=== PATIENT | male | born 1990 | race Caucasian/White ===

== ENCOUNTER 2017-05-04 17:30 | Emergency (ER) | payer OTHER ==
[2017-05-04 18:23] VITALS: BP 137/89
--- NOTE | 2017-05-04 19:19 | RADIOLOGY REPORT (SQ) ---
EXAM DESCRIPTION: SHOULDER RIGHT 2 OR MORE VIEWS COMPLETED DATE/TIME: 05/04/2017 7:11 pm REASON FOR STUDY: unable to raise right shoulder COMPARISON: None. NUMBER OF VIEWS: Three views. TECHNIQUE: Internal rotation, external rotation, and Y view images acquired of the right shoulder. LIMITATIONS: None. FINDINGS: MINERALIZATION: Normal. BONES: No acute fracture or dislocation. No worrisome bone lesions. JOINTS: No dislocation. VISUALIZED LUNGS AND RIBS: No pneumothorax. No rib fracture. SOFT TISSUES: No radiopaque foreign body. OTHER: No other significant finding. IMPRESSION: NEGATIVE STUDY OF THE RIGHT SHOULDER. NO RADIOGRAPHIC EVIDENCE OF ACUTE INJURY. TECHNICAL DOCUMENTATION: JOB ID: [id number] [employer]- All Rights Reserved
[2017-05-04] MEDS ORDERED: NAPROXEN 250 MG TABLET PO ONE (21:35)
[2017-05-04] MEDS ORDERED: METHOCARBAMOL 500 MG TABLET PO ONE (21:35)
--- NOTE | 2017-05-04 21:37 | ER Document Report ---
ED Extremity Problem, Upper - General Chief Complaint: Shoulder Pain Stated Complaint: SHOULDER PAIN Time Seen by Provider: 05/04/17 21:33 Notes: The patient is a 27-year-old male who presents with 3 weeks of right shoulder pain is worse when he picks up heavy objects. 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 He is having worsening right shoulder pain and upper back pain when he tries to lift up his son. He denies fall, numbness, tingling, rash, chest pain, shortness of breath, nausea or vomiting. TRAVEL OUTSIDE OF THE [place] IN LAST 30 DAYS: No - Related Data Allergies/Adverse Reactions: Penicillins Allergy (Verified 03/15/12 09:45) unknown Past Medical History - General Information source: Patient - Social History Smoking Status: Unknown if Ever Smoked Family History: Reviewed & Not Pertinent Patient has suicidal ideation: No Patient has homicidal ideation: No Neurological Medical History: Reports: Hx Seizures Renal/ Medical History: Denies: Hx Peritoneal Dialysis Past Surgical History: Reports: Hx Appendectomy Review of Systems - Review of Systems Notes: REVIEW OF SYSTEMS: CONSTITUTIONAL: -fevers, -chills EENT: -eye pain, -difficulty swallowing, -nasal congestion CARDIOVASCULAR:-chest pain, -syncope. RESPIRATORY: -cough, -SOB GASTROINTESTINAL: -abdominal pain, - nausea, -vomiting, -diarrhea GENITOURINARY: -dysuria, -hematuria MUSCULOSKELETAL: +right shoulder pain, +upper back pain, -neck pain SKIN: -rash or skin lesions. HEMATOLOGIC: -easy bruising or bleeding. LYMPHATIC: -swollen, enlarged glands. NEUROLOGICAL: -altered mental status or loss of consciousness, -headache, - neurologic symptoms PSYCHIATRIC: -anxiety, -depression. ALL OTHER SYSTEMS REVIEWED AND NEGATIVE. Physical Exam - Vital signs Vitals: Temp Pulse Resp BP Pulse Ox 98.1 F 90 18 137/89 H 98 05/04/17 18:18 05/04/17 18:18 05/04/17 18:18 05/04/17 18:18 05/04/17 18:18 - Notes Notes: PHYSICAL EXAMINATION: GENERAL: Well-appearing, well-nourished and in no acute distress. HEAD: Atraumatic, normocephalic. EYES: Pupils equal round and reactive to light, extraocular movements intact, sclera anicteric, conjunctiva are normal. ENT: nares patent, oropharynx clear without exudates. Moist mucous membranes. NECK: Normal range of motion, supple without lymphadenopathy LUNGS: Breath sounds clear to auscultation bilaterally and equal. No wheezes rales or rhonchi. HEART: Regular rate and rhythm without murmurs ABDOMEN: Soft, nontender, normoactive bowel sounds. No guarding, no rebound. No masses appreciated. EXTREMITIES: Normal range of motion, no pitting or edema. No cyanosis. Painful right shoulder extension. Strong distal pulses. Tenderness over right upper trap. NEUROLOGICAL: Cranial nerves grossly intact. Normal speech, normal gait. Normal sensory and motor exams. PSYCH: Normal mood, normal affect. SKIN: Warm, Dry, normal turgor, no rashes or lesions noted. Course - Re-evaluation Re-evalutation: Patient has evidence of right upper back pain and spasming with right shoulder strain. X-ray negative. Instructed him about beginning NSAIDs, Lidocaine patches and Robaxin for any muscle spasms with f/u at Ortho. - Vital Signs Vital signs: Temp Pulse Resp BP Pulse Ox 98.1 F 90 18 137/89 H 98 05/04/17 18:18 05/04/17 18:18 05/04/17 18:18 05/04/17 18:18 05/04/17 18:18 - Diagnostic Test Radiology reviewed: Image reviewed, Reports reviewed Radiology results interpreted by me: Right shoulder x-ray: NAD Discharge - Discharge Clinical Impression: Right shoulder pain Qualifiers: Chronicity: acute Qualified Code(s): M25.511 - Pain in right shoulder Condition: Stable Disposition: HOME, SELF-CARE Additional Instructions: Follow-up with the orthopedic surgeon at the [facility] this week. Take Naprosyn and Robaxin to help with your shoulder pain. Shoulder Injury You have injured your shoulder. This usually results from stretching or tearing of the tendons during trauma. Time and protection are required in order to heal properly. Many injuries are quite disabling, and should be taken seriously. Initial treatment includes cold packs and a sling to rest the shoulder. The physician has assessed the seriousness of your injury, and has outlined a treatment plan. Understand that this treatment may change, depending on how you progress. If a re-examination was recommended, it is important that you follow up as instructed. Some shoulder injuries (such as partial tear of the rotator cuff) are only suspected after you've failed to improve. Call us if there's severe pain, numbness, or loss of function. Prescriptions: Methocarbamol [Robaxin 500 mg Tablet] 500 mg PO Q4H PRN #15 tablet PRN Reason: Forms: Return to Work Referrals: CRISTY ELIZABETH DO [ACTIVE STAFF] - Follow up as needed
== END 2017-05-04 21:55 | disposition home or self-care (01) ==
LOC: ER 17:30
DX: M25.511 Pain in right shoulder (principal); M54.6 Pain in thoracic spine
CPT/HCPCS: 99283

== ENCOUNTER 2017-09-17 20:46 | Emergency (ER) | payer OTHER, MEDICAID ==
[2017-09-17] MEDS ORDERED: OXYCODONE-ACETAMINOPHEN 5-325 MG TABLET PO ONE (21:22)
--- NOTE | 2017-09-17 21:23 | ER Document Report ---
ED General - General Chief Complaint: Shoulder Pain Stated Complaint: ARM INJURY TRAVEL OUTSIDE OF THE [place] IN LAST 30 DAYS: No - HPI Patient complains to provider of: Right shoulder right elbow right knee pain Notes: Patient coming in for right shoulder right elbow and right knee pain. Patient states he was playing softball night when he does on the ground. Patient otherwise amatory here in the ER. Denies any other injuries denies any loss of consciousness. Patient resting comfortably with ice packs on his knee. - Related Data Allergies/Adverse Reactions: Penicillins Allergy (Verified 03/15/12 09:45) unknown Past Medical History - Social History Smoking Status: Never Smoker Chew tobacco use (# tins/day): Yes Frequency of alcohol use: None Family History: Reviewed & Not Pertinent Patient has suicidal ideation: No Patient has homicidal ideation: No Neurological Medical History: Reports: Hx Seizures Renal/ Medical History: Denies: Hx Peritoneal Dialysis Past Surgical History: Reports: Hx Appendectomy Review of Systems - Review of Systems Constitutional: No symptoms reported EENT: No symptoms reported Cardiovascular: No symptoms reported Respiratory: No symptoms reported Gastrointestinal: No symptoms reported Genitourinary: No symptoms reported Male Genitourinary: No symptoms reported Musculoskeletal: Other - Shoulder knee elbow pain Skin: No symptoms reported Hematologic/Lymphatic: No symptoms reported Neurological/Psychological: No symptoms reported Physical Exam - Vital signs Vitals: Temp Pulse Resp BP Pulse Ox 98.1 F 102 H 16 128/79 H 97 09/17/17 20:51 09/17/17 20:51 09/17/17 20:51 09/17/17 20:51 09/17/17 20:51 Interpretation: Normal - General General appearance: Appears well, Alert - HEENT Head: Normocephalic, Atraumatic Eyes: Normal Pupils: PERRL - Respiratory Respiratory status: No respiratory distress Chest status: Nontender Breath sounds: Normal Chest palpation: Normal - Cardiovascular Rhythm: Regular Heart sounds: Normal auscultation Murmur: No - Abdominal Inspection: Normal Distension: No distension Bowel sounds: Normal Tenderness: Nontender Organomegaly: No organomegaly - Back Back: Normal, Nontender - Extremities General upper extremity: Normal inspection, Tender - Tenderness palpation of the right shoulder right clavicle. Patient also has tenderness palpation of the right elbow., Normal color, Normal ROM, Normal temperature General lower extremity: Normal inspection, Tender - Obvious effusion to the right knee. Patient has no laxity or pain with valgus varus anterior posterior drawer testing. Exquisite tenderness palpation of the patella, Normal color, Normal ROM, Normal temperature, Normal weight bearing. No: Nithin's sign - Neurological Neuro grossly intact: Yes Cognition: Normal Orientation: AAOx4 [place] Coma Scale Eye Opening: Spontaneous [place] Coma Scale Verbal: Oriented [place] Coma Scale Motor: Obeys Commands [place] Coma Scale Total: 15 Speech: Normal Motor strength normal: LUE, RUE, LLE, RLE Sensory: Normal - Psychological Associated symptoms: Normal affect, Normal mood - Skin Skin Temperature: Warm Skin Moisture: Dry Skin Color: Normal Course - Re-evaluation Re-evalutation: 09/18/17 02:22 X-rays are negative for fracture. Patient was offered Noah wrap with crutches. Patient states he did without needing crutches at this time. Patient will be given pain medication for home. Patient was instructed to follow-up with orthopedic physicians patient will be discharged home. - Vital Signs Vital signs: Temp Pulse Resp BP Pulse Ox 97.7 F 82 18 129/83 H 100 09/17/17 23:38 09/17/17 23:38 09/17/17 23:38 09/17/17 23:38 09/17/17 23:38 Discharge - Discharge Clinical Impression: Left shoulder strain Qualifiers: Encounter type: initial encounter Qualified Code(s): S46.912A - Strain of unspecified muscle, fascia and tendon at shoulder and upper arm level, left arm , initial encounter Left knee sprain Qualifiers: Encounter type: initial encounter Involved ligament of knee: unspecified ligament Qualified Code(s): S83.92XA - Sprain of unspecified site of left knee, initial encounter Condition: Good Disposition: HOME, SELF-CARE Instructions: Noah Wrap ([facility]), Ice & Elevation ([facility]), Suspected Internal Knee Injury ([facility]), Knee Effusion ([facility]), Oral Narcotic Medication ([facility]), Shoulder Injury ([facility]), Sprained Knee ([facility]) Additional Instructions: Your x-rays not show any signs of fracture. More likely he suffered soft tissue injury a strain or sprain. Please follow-up with your orthopedic physician or primary care physician. Take medication as prescribed. You may also take Tylenol and Motrin for pain take prescribed medication for severe pain. Prescriptions: Hydrocodone/Acetaminophen [Hydrocodon-Acetaminophen 5-325] 1 each PO Q6 #24 tablet Forms: Return to Work Referrals: LITA FRANKS MD [Primary Care Provider] - Follow up as needed AUDREY ROME MD [ACTIVE STAFF] - Follow up as needed
--- NOTE | 2017-09-17 22:31 | RADIOLOGY REPORT (SQ) ---
EXAM DESCRIPTION: ELBOW RIGHT OVER 2 VIEWS COMPLETED DATE/TIME: 09/17/2017 9:41 pm REASON FOR STUDY: fall COMPARISON: None. NUMBER OF VIEWS: Four views. TECHNIQUE: AP, lateral, and both oblique radiographic images acquired of the right elbow. LIMITATIONS: None. FINDINGS: MINERALIZATION: Normal. BONES: No acute fracture or dislocation. No worrisome bone lesions. JOINT: No effusion. SOFT TISSUES: No soft tissue swelling. No foreign body. OTHER: No other significant finding. IMPRESSION: NO RADIOGRAPHIC EVIDENCE OF ACUTE INJURY. TECHNICAL DOCUMENTATION: JOB ID: [id number] [place]-72 2010 [employer]- All Rights Reserved
--- NOTE | 2017-09-17 22:32 | RADIOLOGY REPORT (SQ) ---
EXAM DESCRIPTION: KNEE RIGHT 3 VIEWS COMPLETED DATE/TIME: 09/17/2017 9:41 pm REASON FOR STUDY: fall COMPARISON: None. NUMBER OF VIEWS: Three views. TECHNIQUE: AP, lateral, and sunrise patella radiographic images acquired of the right knee. LIMITATIONS: None. FINDINGS: MINERALIZATION: Normal. BONES: No acute fracture or dislocation. No worrisome bone lesions. JOINT: No effusion. SOFT TISSUES: Prepatellar soft tissue swelling. No radio-opaque foreign body. OTHER: No other significant finding. IMPRESSION: No fracture. TECHNICAL DOCUMENTATION: JOB ID: [id number] [place]-72 2010 [employer]- All Rights Reserved
--- NOTE | 2017-09-17 22:33 | RADIOLOGY REPORT (SQ) ---
EXAM DESCRIPTION: SHOULDER RIGHT 2 OR MORE VIEWS COMPLETED DATE/TIME: 09/17/2017 9:41 pm REASON FOR STUDY: fall COMPARISON: 05/04/2017 NUMBER OF VIEWS: Three views. TECHNIQUE: Internal rotation, external rotation, and Y view images acquired of the right shoulder. LIMITATIONS: None. FINDINGS: MINERALIZATION: Normal. BONES: No acute fracture or dislocation. Congenitally shallow glenoid. JOINTS: No dislocation. VISUALIZED LUNGS AND RIBS: No pneumothorax. No rib fracture. SOFT TISSUES: No radiopaque foreign body. OTHER: No other significant finding. IMPRESSION: NO RADIOGRAPHIC EVIDENCE OF ACUTE INJURY. TECHNICAL DOCUMENTATION: JOB ID: [id number] [place]-72 2010 [employer]- All Rights Reserved
[2017-09-17] MEDS ORDERED: HYDROCODONE/ACETAMINOPHEN 5-325 MG (6 TAB/ER DISP) PO PRN (23:33)
[2017-09-18 00:04] VITALS: BP 129/83
== END 2017-09-18 | disposition home or self-care (01) ==
LOC: ER 20:46
DX: S46.912A Strain of unspecified muscle, fascia and tendon at shoulder and upper arm level, left arm, initial encounter (principal); S83.92XA Sprain of unspecified site of left knee, initial encounter; M25.521 Pain in right elbow; W01.0XXA Fall on same level from slipping, tripping and stumbling without subsequent striking against object, initial encounter; Y93.64 Activity, baseball; Z88.0 Allergy status to penicillin
CPT/HCPCS: 99283

== ENCOUNTER 2017-09-21 13:56 | Emergency (ER) | payer OTHER, MEDICAID ==
[2017-09-21 14:04] VITALS: BP 133/79
--- NOTE | 2017-09-21 15:14 | ER Document Report ---
ED General - General Chief Complaint: Low Back Pain Stated Complaint: LOWER BACK PAIN Time Seen by Provider: 09/21/17 14:21 Notes: Patient presents with right knee pain. Patient states he was seen here several days ago after injuring his knee in a softball accident. He states x-rays at that time showed no evidence of injury. He states today he was referred here by primary care physician for an MRI. Patient states he was having some numbness and pain below the knee. I did call and speak with the primary care office. They state the patient was not seen there today. They state that patient has not been seen there previously either. They state that they did talk to his today who stated that the patient had no feeling in his leg below the knee. They state that they did not recommend an MRI but told the patient to come to the emergency department for evaluation. Patient complains of constant knee pain. He states it is worse with movement and better with rest. It does radiate down the right leg. It is a throbbing sensation. TRAVEL OUTSIDE OF THE [place] IN LAST 30 DAYS: No - Related Data Allergies/Adverse Reactions: Penicillins Allergy (Verified 09/21/17 14:09) unknown Past Medical History - General Information source: Patient - Social History Smoking Status: Never Smoker Chew tobacco use (# tins/day): Yes Frequency of alcohol use: Social Drug Abuse: None Family History: Reviewed & Not Pertinent Patient has suicidal ideation: No Patient has homicidal ideation: No Neurological Medical History: Reports: Hx Seizures Renal/ Medical History: Denies: Hx Peritoneal Dialysis Past Surgical History: Reports: Hx Appendectomy Review of Systems - Review of Systems Constitutional: denies: Chills, Fever Cardiovascular: denies: Chest pain, Palpitations Respiratory: denies: Cough, Short of breath Physical Exam - Vital signs Vitals: Temp Pulse Resp BP Pulse Ox 98.4 F 86 16 133/79 H 97 09/21/17 14:01 09/21/17 14:01 09/21/17 14:01 09/21/17 14:01 09/21/17 14:01 - General General appearance: Appears well, Alert In distress: None - Respiratory Respiratory status: No respiratory distress Chest status: Nontender Breath sounds: Normal Chest palpation: Normal - Cardiovascular Rhythm: Regular Heart sounds: Normal auscultation Murmur: No - Extremities General upper extremity: Normal inspection, Normal ROM General lower extremity: Tender, Edema, Other - Patient is seen to flex and extend the right knee doing normal activities without significant inhibition. On exam he does have a mild to moderate effusion. No increased temperature. The knee is diffusely tender to palpation. No significant abnormalities distal to the knee on inspection and palpation are appreciated. He does have a 2+ dorsalis pedis pulse on the right. He has normal capillary refill in all toes on the right. He has no apparent decreased sensation. He has normal color and temperature distal to the right knee. Course - Re-evaluation Re-evalutation: 09/21/17 15:12 Patient was placed in a knee immobilizer and instructed he will need to follow- up with orthopedics to obtain an MRI if necessary once the swelling has lessened. - Vital Signs Vital signs: Temp Pulse Resp BP Pulse Ox 98.4 F 86 16 133/79 H 97 09/21/17 14:01 09/21/17 14:01 09/21/17 14:01 09/21/17 14:01 09/21/17 14:01 Procedures - Immobilization Right Knee Time completed: 15:13 Pre-Proc Neuro Vasc Exam: Normal Immobilizer type: Knee immobilizer Performed by: Provider assisted Post-Proc Neuro Vasc Exam: Normal Alignment checked and good: Yes Discharge - Discharge Clinical Impression: Right knee sprain Qualifiers: Encounter type: subsequent encounter Involved ligament of knee: unspecified ligament Qualified Code(s): S83.91XD - Sprain of unspecified site of right knee , subsequent encounter Condition: Stable Disposition: HOME, SELF-CARE Instructions: Sprained Knee ([facility]), Suspected Internal Knee Injury ([facility]), Knee Immobilizing Splint ([facility]), Ice & Elevation ([facility]) Additional Instructions: Please call orthopedics as soon as possible to arrange follow-up Forms: Return to Work Referrals: AUDREY ROME MD [ACTIVE STAFF] - Follow up in 3-5 days
== END 2017-09-21 15:20 | disposition home or self-care (01) ==
LOC: ER 13:56
DX: S83.91XA Sprain of unspecified site of right knee, initial encounter (principal); X58.XXXA Exposure to other specified factors, initial encounter; R20.0 Anesthesia of skin; Z72.0 Tobacco use; Z88.0 Allergy status to penicillin
CPT/HCPCS: 99283; L1830

== ENCOUNTER 2017-12-20 21:57 | Emergency (ER) | payer OTHER, MEDICAID ==
[2017-12-20] MEDS ORDERED: TETRACAINE HCL 0.5% OPH SOLN 2 ML OU ONE (22:11)
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
[2017-12-21] MEDS ORDERED: OXYCODONE-ACETAMINOPHEN 5-325 MG TABLET PO ONE (00:52)
[2017-12-21] MEDS ORDERED: BESIFLOXACIN HCL 0.6% OPH SUSP 5 ML BOTTLE OS ONE (00:52)
[2017-12-21] MEDS ORDERED: HYDROCODONE/ACETAMINOPHEN 5-325 MG (6 TAB/ER DISP) PO PRN (00:52)
[2017-12-21] MEDS ORDERED: PROMETHAZINE HCL 25 MG TABLET PO ONE (00:52)
[2017-12-21 01:34] VITALS: BP 146/88
== END 2017-12-21 01:12 | disposition home or self-care (01) ==
LOC: ER 21:57
PROC: 08C9XZZ Extirpation of Matter from Left Cornea, External Approach (ICD-10-PCS; principal; 2017-12-20)
PROC: 08C1XZZ Extirpation of Matter from Left Eye, External Approach (ICD-10-PCS; 2017-12-20)
DX: T15.02XA Foreign body in cornea, left eye, initial encounter (principal); V28.4XXA Motorcycle driver injured in noncollision transport accident in traffic accident, initial encounter; Z88.0 Allergy status to penicillin
CPT/HCPCS: 99283

== ENCOUNTER 2019-03-06 21:57 | Emergency (ER) | payer MEDICAID, OTHER ==
[2019-03-06] MEDS ORDERED: ASPIRIN 81 MG TABLET, CHEWABLE PO ONE (22:14)
--- NOTE | 2019-03-06 22:32 | ER Document Report ---
ED Medical Screen (RME) - General Chief Complaint: Chest Pain Stated Complaint: CHEST PAIN Time Seen by Provider: 03/06/19 22:14 Notes: Patient is a 28-year-old male presents to the emergency department for left- sided chest pain that started around 10 AM. States at times the pain increases when he takes a deep breath but then also will move into his left shoulder and down his left arm. 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 GENERAL: Alert, interacts well. No acute distress. LUNGS: Clear to auscultation bilaterally, no wheezes, rales, or rhonchi. No respiratory distress. HEART: Regular rate and rhythm. No murmur I have greeted and performed a rapid initial assessment of this patient. A comprehensive ED assessment and evaluation of the patient, analysis of test results and completion of the medical decision making process will be conducted by additional ED providers. I have specifically instructed the patient or family members with the patient to immediately return to any nursing staff should anything change in the patient's condition or with their chief complaint. This medical record was dictated with voice recognizing software. There may be grammatical, syntax errors that are unintended. TRAVEL OUTSIDE OF THE [place] IN LAST 30 DAYS: No - Related Data Allergies/Adverse Reactions: Penicillins Allergy (Verified 09/21/17 14:09) unknown Past Medical History Neurological Medical History: Reports: Hx Seizures Renal/ Medical History: Denies: Hx Peritoneal Dialysis Past Surgical History: Reports: Hx Appendectomy - Immunizations Immunizations up to date: Yes Hx Diphtheria, Pertussis, Tetanus Vaccination: Yes Physical Exam - Vital signs Vitals: Temp Pulse Resp BP Pulse Ox 97.9 F 108 H 18 129/81 H 95 03/06/19 22:09 03/06/19 22:09 03/06/19 22:09 03/06/19 22:09 03/06/19 22:09 Course - Vital Signs Vital signs: Temp Pulse Resp BP Pulse Ox 97.9 F 108 H 18 129/81 H 95 03/06/19 22:09 03/06/19 22:09 03/06/19 22:09 03/06/19 22:09 03/06/19 22:09
[2019-03-06 23:08] LABS: ABSOLUTE EOSINOPHILS # (AUTO) 0.4 10^3/uL (0.0-0.6); ABSOLUTE LYMPHOCYTES (AUTO) 2.4 10^3/uL (0.5-4.7); ABSOLUTE MONOCYTES (AUTO) 0.7 10^3/uL (0.1-1.4); ABSOLUTE NEUT (AUTO) 5.2 10^3/uL (1.7-8.2); BASOPHILS % (AUTO) 0.4 % (0-2); EOSINOPHILS % (AUTO) 4.1 % (0-6); HEMOGLOBIN 15.1 g/dL (13.5-17.0); LYMPHOCYTES % (AUTO) 27.9 % (13-45); MEAN CORPUSCULAR HGB CONC 34.4 g/dL (32.0-36.0); MEAN CORPUSCULAR VOLUME 87 fl (80-97); MONOCYTES % (AUTO) 7.7 % (3-13); PLATELET COUNT 211 10^3/uL (150-450); RED BLOOD COUNT 5.05 10^6/uL (4.35-5.55); RED CELL DISTRIBUTION WIDTH 12.6 % (11.5-14.0); SEGMENTED NEUTROPHILS % (AUTO) 59.9 % (42-78); TOTAL CELLS COUNTED % (AUTO) 100 %; WHITE BLOOD COUNT 8.7 10^3/uL (4.0-10.5)
[2019-03-06 23:14] LABS: INTERNATIONAL RATION (INR) 1.06; PROTHROMBIN TIME 13.8 SEC (11.4-15.4)
--- NOTE | 2019-03-06 23:18 | RADIOLOGY REPORT (SQ) ---
EXAM DESCRIPTION: XR CHEST 1 VIEW COMPLETED DATE/TME: 03/06/2019 22:14 CLINICAL HISTORY: 28 years Male, CP COMPARISON: None. NUMBER OF VIEWS/TECHNIQUE: 1/AP FINDINGS: Moderate lung volume, clear parenchyma, normal cardiac silhouette, and intact bony thorax. IMPRESSION: No acute cardiopulmonary findings.
[2019-03-06 23:21] LABS: ALKALINE PHOSPHATASE 23 U/L (38-126); ANION GAP 15 (5-19); ASPARTATE AMINO TRANSFERASE 44 U/L (17-59); BILIRUBIN,DIRECT 0.2 mg/dL (0.0-0.4); BILIRUBIN,TOTAL 0.5 mg/dL (0.2-1.3); BLOOD UREA NITROGEN 13 mg/dL (7-20); CALCIUM 9.9 mg/dL (8.4-10.2); CARBON DIOXIDE 22 mmol/L (22-30); CHLORIDE 103 mmol/L (98-107); CREATINE KINASE 55 U/L (55-170); GLUCOSE 97 mg/dL (75-110); POTASSIUM 4.4 mmol/L (3.6-5.0); TOTAL PROTEIN 7.8 g/dL (6.3-8.2)
[2019-03-06 23:34] LABS: CREATINE KINASE MB 0.32 ng/mL (<4.55)
[2019-03-06 23:35] LABS: TROPONIN I < 0.012 ng/mL
--- NOTE | 2019-03-07 00:49 | ER Document Report ---
ED General - General Chief Complaint: Chest Pain Stated Complaint: CHEST PAIN Time Seen by Provider: 03/06/19 22:14 TRAVEL OUTSIDE OF THE [place] IN LAST 30 DAYS: No - HPI Notes: 28-year-old male presents with chest pain. Describes rapid onset around 10 AM of pain in his upper lateral chest that went into the shoulder and upper arm. No injury. Sharp, sometimes worse with deep inspiration. No cough, fever chills or sweats. No personal or family history of venous trauma embolism. No family history of early ACS. Waxed and waned throughout the day but did not disappear. No recent injury. Moderate intensity, nonradiating except as described. Some transient numbness in his left upper extremity. No other modifying factors, no other associated symptoms, no other provocative or palliative factors. He states he was told before that he might of had a heart attack. When asked to clarify, he states that he had a syncopal episode back in 2015 was seen in [facility]. When he lifted his EKG they said that he might "have scar from an old heart attack". He was never worked up for this, never underwent stress testing, never underwent cardiac catheterization. - Related Data Allergies/Adverse Reactions: Penicillins Allergy (Verified 09/21/17 14:09) unknown Past Medical History - Social History Smoking Status: Never Smoker Chew tobacco use (# tins/day): Yes Frequency of alcohol use: Occasional Drug Abuse: None Family History: Reviewed & Not Pertinent Patient has suicidal ideation: No Patient has homicidal ideation: No - Past Medical History Cardiac Medical History: Reports: Hx Heart Attack Neurological Medical History: Reports: Hx Seizures Renal/ Medical History: Denies: Hx Peritoneal Dialysis Past Surgical History: Reports: Hx Appendectomy - Immunizations Immunizations up to date: Yes Hx Diphtheria, Pertussis, Tetanus Vaccination: Yes Review of Systems - Review of Systems Notes: Review of systems as in the history of present illness, otherwise negative x 10 systems. Physical Exam - Vital signs Vitals: Temp Pulse Resp BP Pulse Ox 97.9 F 108 H 18 129/81 H 95 03/06/19 22:09 03/06/19 22:09 03/06/19 22:09 03/06/19 22:09 03/06/19 22:09 - Notes Notes: General: Well developed . HEENT: Normocephalic, atraumatic. Pupils equal round reactive to light. No JVD. Chest: No trauma. Respiratory: Good air exchange, normal excursion. Cardiac: Regular rhythm. No murmurs or gallops. Abdomen: Soft, benign. Nondistended. Nontender. Back: No asymmetry or gross abnormality. Motor: Grossly normal power and tone. Neurologic: Alert, nonfocal. Cranial nerves II-12 are intact. Sensation intact. Vascular: Well perfused. Normal peripheral pulses. Skin: No petechiae or purpura. Vascular exam shows strong symmetric upper and lower extremity pulses Course - Vital Signs Vital signs: Temp Pulse Resp BP Pulse Ox 97.9 F 108 H 17 126/72 H 92 03/06/19 22:09 03/06/19 22:09 03/06/19 23:38 03/06/19 23:38 03/06/19 23:38 - Laboratory Result Diagrams: 03/06/19 22:35 03/06/19 22:35 Laboratory results interpreted by me: 03/06/19 22:35 Alkaline Phosphatase 23 L - EKG Interpretation by [place] EKG shows normal: Sinus rhythm Rate: Tachycardia Rhythm: No: Arrthymia Additional EKG results interpreted by me: 03/07/19 00:50 No ischemic changes - Transfer of Care Notes: 03/07/19 00:46 Patient was evaluated by the [facility] provider prior to my evaluation. Studies / interventions have been ordered by this provider and may still be pending. This is a well-appearing 28-year-old male who is very low risk for ACS. He has a heart score of 1. Consider pneumothorax, occult strain, costochondritis, pleurisy, sternal consider pulmonary embolism. He is low risk for this but does have some tachycardia violating the PERC rule. Available studies at this time showed normal chest x-ray, normal CBC, normal chemistries, normal troponin. Given the atypical nature of his symptoms, the continuous nature, and his otherwise lower status I think a single negative troponin effectively makes the posttest probability of ACS acceptably low. Plan is to proceed with d-dimer testing, otherwise he is improved with the after mentioned therapy provided by the [facility] physician 03/07/19 02:01 D-dimer is normal, effectively excluding pulmonary embolism in this otherwise low risk patient. Patient is improved in condition, discharged home with a prescription for naproxen, outpatient follow-up. Discharge - Discharge Clinical Impression: Chest pain Qualifiers: Chest pain type: unspecified Qualified Code(s): R07.9 - Chest pain, unspecified Condition: Stable Disposition: HOME, SELF-CARE Instructions: Chest Pain of Unclear Cause ([facility]) Prescriptions: Naproxen 500 mg PO Q12 PRN #12 tablet PRN Reason: Referrals: KAREN YIP MD [HONORARY] - Follow up as needed
[2019-03-07 02:42] VITALS: BP 120/70
--- NOTE | 2019-03-08 09:41 | EKG REPORT ---
SEVERITY:- OTHERWISE NORMAL ECG - SINUS TACHYCARDIA : Confirmed by: Andreia Steele 08-Mar-2019 09:41:03
== END 2019-03-07 02:42 | disposition home or self-care (01) ==
LOC: ER 21:57
DX: R07.9 Chest pain, unspecified (principal); M25.519 Pain in unspecified shoulder; M79.629 Pain in unspecified upper arm; R20.0 Anesthesia of skin; Z72.0 Tobacco use; R00.0 Tachycardia, unspecified; Z88.0 Allergy status to penicillin
CPT/HCPCS: 36415; 71045; 80053; 82550; 82553; 84484; 85025; 85379; 85610; 93005; 93010; 99285

== ENCOUNTER → 2019-05-16 | Outpatient (CLI) | payer MEDICAID ==
--- NOTE | 2019-05-16 14:59 | RADIOLOGY REPORT (SQ) ---
EXAM DESCRIPTION: LUMBAR SPINE COMPLETE COMPLETED DATE/TIME: 05/16/2019 1:01 pm REASON FOR STUDY: LUMBAGO WITH SCIATICA, LEFT SIDE R07.89 OTHER CHEST PAIN M54.42 LUMBAGO WITH SCI ATICA, LEFT SIDE R20.2 PARESTHESIA OF SKIN COMPARISON: None. NUMBER OF VIEWS: Five views including obliques. TECHNIQUE: AP, lateral, oblique, and sacral radiographic images acquired of the lumbar spine. LIMITATIONS: None. FINDINGS: MINERALIZATION: Normal. SEGMENTATION: Normal. No transitional anatomy. ALIGNMENT: Normal. VERTEBRAE: Maintained height. No fracture or worrisome bone lesion. DISCS: Preserved height. No significant osteophytes or end plate irregularity. POSTERIOR ELEMENTS: Pedicles and facets are intact. No pars defect or posterior arch defects. HARDWARE: None in the spine. PARASPINAL SOFT TISSUES: Normal. PELVIS: Intact as visualized. No fractures or worrisome bone lesions. SI joints intact. OTHER: No other significant finding. IMPRESSION: NORMAL 5 VIEW LUMBAR SPINE. TECHNICAL DOCUMENTATION: JOB ID: [id number] [email or web address]- All Rights Reserved Reading location - IP/workstation name: [email or web address]
--- NOTE | 2019-05-16 15:00 | RADIOLOGY REPORT (SQ) ---
EXAM DESCRIPTION: C SP 4 OR 5 VIEWS COMPLETED DATE/TIME: 05/16/2019 1:01 pm REASON FOR STUDY: PARESTHESIA OF SKIN R07.89 OTHER CHEST PAIN M54.42 LUMBAGO WITH SCIATICA, LEFT S GENESIS R20.2 PARESTHESIA OF SKIN COMPARISON: None. NUMBER OF VIEWS: Five views. TECHNIQUE: AP, lateral, obliques and odontoid radiographic images acquired of the cervical spine. LIMITATIONS: None. FINDINGS: MINERALIZATION: Normal. ALIGNMENT: Anatomic. VERTEBRAE: Vertebral bodies of normal height. DISCS: No significant osteophytes or sclerosis. Disc height maintained. FORAMINA: No osteophytes or foraminal narrowing. LATERAL AND POSTERIOR ELEMENTS: Facets, lateral masses and spinous processes without significant find ings. HARDWARE: None in the spine. SOFT TISSUES: No masses or calcifications. Lung apices clear. OTHER: No other significant finding. IMPRESSION: NO SIGNIFICANT RADIOGRAPHIC FINDING IN THE CERVICAL SPINE. TECHNICAL DOCUMENTATION: JOB ID: [id number] [email or web address]- All Rights Reserved Reading location - IP/workstation name: [email or web address]
--- NOTE | 2019-05-16 16:54 | EKG REPORT ---
SEVERITY:- NORMAL ECG - SINUS RHYTHM : Confirmed by: Emily Hernandez MD 16-May-2019 16:53:57
== END ==
LOC: OD 12:18
PROVIDERS: ATTEND Nurse Practitioner Family
DX: M54.42 Lumbago with sciatica, left side (principal); R07.89 Other chest pain; R20.2 Paresthesia of skin
CPT/HCPCS: 72050; 72110; 93005; 93010